=== PATIENT | female | born 1955 | race Caucasian/White ===

== ENCOUNTER 2019-06-07 19:56 | Inpatient (IN) | payer MEDICARE, MEDICAID ==
[~2019-06-07] VITALS: Ht 157.5 cm; Wt 52.9 kg
[2019-06-07] MEDS ORDERED: CARAFATE1 G PO (20:01)
[2019-06-07 20:24] LABS: BASOPHILS 0.3 % (0-2); EOSINOPHILS 0.2 % (0-7); HEMATOCRIT 38.2 % (36.0-48.0); HEMOGLOBIN 12.6 g/dL (12-16); IMMATURE GRANULOCYTES 0.2 % (0-5); LYMPHOCYTES 9.5 % (15-50); MCH 29.6 pg (26.0-34.0); MCV 89.7 fL (80.0-100.0); MEAN PLATELET VOLUME 10.2 fL (7.4-10.4); MONOCYTES 7.7 % (2-11); NEUTROPHILS 82.1 % (40-80); PLATELET COUNT 216 10x3/uL (130-400); RBC 4.26 10x6/uL (4.00-5.40); RDW 13.4 % (11.5-14.5)
[2019-06-07 20:29] LABS: APTT 34.5 SECONDS (22.8-39.4); INR 1.09 (0.85-1.17)
[2019-06-07 20:33] LABS: CALC OSMOLALITY 290 mosm/kg (275-300); CALCIUM 8.2 mg/dL (8.5-10.1); CARBON DIOXIDE 26.5 mmol/L (21.0-32.0); CHLORIDE - SERUM 106 mmol/L (98-107); GLUCOSE 92 mg/dL (74-106); POTASSIUM - SERUM 3.3 mmol/L (3.5-5.1); SODIUM 143 mmol/L (136-145); UREA NITROGEN 29 mg/dL (7-18); eGFR NON AFRICAN AMERICAN 59 mL/min (90-120)
--- NOTE | 2019-06-07 20:33 | NUR ---
RT AT PT BEDSIDE
[2019-06-07 20:43] LABS: ALBUMIN 3.1 g/dL (3.4-5.0); ALKALINE PHOSPHATASE 105 U/L (46-116); ALT (SGPT) 9 U/L (10-68); BILIRUBIN - TOTAL 0.25 mg/dL (0.2-1.3); CKMB 4.3 U/L (0.0-3.6); CREATINE KINASE 65 UL (21-215); PRO BNP 1074 pg/mL (0-125)
[2019-06-07 20:51] LABS: TROPONIN-I < 0.017 ng/mL (0.000-0.060)
[2019-06-07 21:00] VITALS: BP 133/72
[2019-06-07 21:10] LABS: APPEARANCE TURBID (CLEAR); BACTERIA MANY /hpf (NEGATIVE); BILIRUBIN NEGATIVE (NEGATIVE); COLOR YELLOW (YELLOW); GLUCOSE NEGATIVE (NEGATIVE); KETONE NEGATIVE (NEGATIVE); NITRITE NEGATIVE (NEGATIVE); PROTEIN 2+ mg/dL (NEGATIVE); RED CELLS - URINE 25-50 /hpf (0-5); SPECIFIC GRAVITY 1.015 (1.005-1.020); UROBILINOGEN NORMAL (NORMAL); WHITE CELLS - URINE 25-50 /hpf (NEGATIVE)
--- NOTE | 2019-06-07 21:45 | NUR ---
PT RESTING ON BED. PT FAMILY AT BEDSIDE.
[2019-06-07 22:00] VITALS: BP 124/53
--- NOTE | 2019-06-07 22:10 | NUR ---
PT PROVIDED SANDWICH BOX AND ICE WATER. PT SITTING UP IN BED. PT DAUGHTER AT BEDSIDE.
[2019-06-07] MEDS ORDERED: OMEPRAZOLE20 M1 PO (23:33)
[2019-06-07] MEDS ORDERED: PREDNISONE5 MG PO (23:34)
[2019-06-07] MEDS ORDERED: REMERON15 MG PO (23:35)
[2019-06-07] MEDS ORDERED: BAYER ASPIRIN325 MG PO (23:36)
[2019-06-07] MEDS ORDERED: FERROUS SULFAT325 MG PO (23:36)
[2019-06-07 23:52] VITALS: BP 130/60; BMI 19.7
--- NOTE | 2019-06-08 00:02 | NUR ---
RECEIVED REPORT FROM RN IN ER. ARRIVED TO FLOOR ON STRETCHER. REQUIRE 2 STAFF TO TRANSFER TO BED. REQUESTED TO GO TO THE B/R. THIS NURSE ASSISTED TO B/R. WEAKNESS IN LOWER EXTREMITIES AND RIGHT WRIST HAS DEFORMITY. PT STATES SHE BROKE IT SOME YEARS AGO AND HAD SURGERY ON HER WRIST. AALERT AND ORIENTED X4. DTR AT BEDSIDE. EDUCATED PT AND FAMILY ON NEED TO STAY HYDRATED. VOICED UNDERSTANDING. ASSESSMENT COMPLETED.
[2019-06-08 04:00] VITALS: BP 129/62
--- NOTE | 2019-06-08 07:20 | NUR ---
PT AWAKE AND ORIENTED, SITTING IN CHIAR BESIDE BED. NO COMPLAINTS/CONCERNS STATED AT THIS TIME. DAUGHTER AT BEDSIDE. CL INR EACH,S RX2.
[2019-06-08 08:27] VITALS: BP 152/90
--- NOTE | 2019-06-08 09:55 | NUR ---
I have reviewed this patient and I concur with the Shift Assessment completed by the Licensed Practical Nurse today this shift.
[2019-06-08 13:00] VITALS: BP 154/65
[2019-06-08] MEDS ORDERED: ALBUTEROL SULF8.5 GM INH (13:04)
--- NOTE | 2019-06-08 16:12 | NUR ---
rehab prescreen: thank you for this eval. this patient has [employer] insurance and will require prior auth before able to admit. will monitor progress til hear back from insurance company. currently not participating with therapy, will need to access functionability before able to admit. once again thank you for this eval. miriam su lpn clinical liasion
[2019-06-08 16:58] VITALS: BP 139/62
--- NOTE | 2019-06-08 17:08 | NUR ---
PT AWAKE AND ORIENTED, SITTING IN BED EATING SUPPER. DAUGHTER AT BEDSIDE. WHEN I ENTERED ROOM PT WAS IN THE BATHROOM SITTING ON THE TOILET. WHILE PREPARING MEDICATION DAUGHTER INFORMED ME CAUSUALLY THAT THE PT HAD FALLEN WHILE GOING TO THE BATHROOM. HER AND THE PT INFORMED ME SHE HAD GOTTEN SHAKY AND SIMPLY SAT DOWN IN THE FLOOR WITH HER DAUGHTERS ASSITANCE. SHE HIT NOTHING ON THE WAY DOWN AND IS IN NO PAIN. CURRENTLY DOING FINE. DOCTOR NOTIFIED. CL IN REACH, SRX2.
--- NOTE | 2019-06-08 19:21 | NUR ---
RECEIVED UP IN BED WITH EYES OPEN AND DTR AT BEDSIDE. ALERT AND ORIENTED X4. UP WITH ASSIST. BOTH HANDS HAVE SKELETAL DEFORMATIES. PT STATES SHE HAS RUMATOID ARTHRITIS. USES BEDSIDE COMMODE. YELLOW GOWN ON AND WEARING YELLOW BRACLET. DUE TO FALL YESTERDAY PRIOR TO COMMING TO ER. IV TO RIGHT WRIST SL.. DENIES ANY NEEDS AT THIS TIME.
[2019-06-08 20:00] VITALS: BP 130/63
[2019-06-08 23:04] LABS: UDS - AMPHET NEGATIVE QUAL (NEGATIVE); UDS - BARB NEGATIVE QUAL (NEGATIVE); UDS - BENZO NEGATIVE QUAL (NEGATIVE); UDS - COCAINE NEGATIVE QUAL (NEGATIVE); UDS - OPIATE NEGATIVE QUAL (NEGATIVE); UDS - PCP NEGATIVE QUAL (NEGATIVE); UDS - THC NEGATIVE QUAL (NEGATIVE)
[2019-06-08 23:49] VITALS: BP 144/62
[2019-06-09 04:39] VITALS: BP 147/82
[2019-06-09 08:43] VITALS: BP 137/74
--- NOTE | 2019-06-09 08:44 | NUR ---
REPORT RECIEVED. PT SITTING ON BEDSIDE. RR EVEN AND UNLABORED. SHE HAS A R WRIST PIV THAT IS SL. BED LOCKED AND IN LOWEST POSITION, CALL LIGHT WITHIN REACH. WILL CTM
[2019-06-09 12:29] VITALS: BP 133/68
[2019-06-09 14:10] LABS: ANION GAP 10.4 mmol/L (8-16); CALCIUM 7.8 mg/dL (8.5-10.1); CARBON DIOXIDE 28.3 mmol/L (21.0-32.0)
[2019-06-09 14:13] LABS: BASOPHILS 0.4 % (0-2); EOSINOPHILS 2.3 % (0-7); HEMATOCRIT 33.8 % (36.0-48.0); HEMOGLOBIN 10.9 g/dL (12-16); IMMATURE GRANULOCYTES 0.2 % (0-5); LYMPHOCYTES 16.9 % (15-50); MCH 29.4 pg (26.0-34.0); MCHC 32.2 g/dL (31.0-37.0); MCV 91.1 fL (80.0-100.0); MEAN PLATELET VOLUME 10.8 fL (7.4-10.4); MONOCYTES 8.5 % (2-11); NEUTROPHILS 71.7 % (40-80); PLATELET COUNT 170 10x3/uL (130-400); RBC 3.71 10x6/uL (4.00-5.40); RDW 13.6 % (11.5-14.5); WBC 5.2 10x3/uL (4.8-10.8)
[2019-06-09 14:19] LABS: POTASSIUM - SERUM 2.7 mmol/L (3.5-5.1)
[2019-06-09 14:57] VITALS: Ht 157.5 cm; Wt 52.9 kg
--- NOTE | 2019-06-09 15:55 | NUR ---
I have reviewed this patient and I concur with the Shift Assessment completed by the Licensed Practical Nurse today this shift.
[2019-06-09 17:35] VITALS: BP 151/81
--- NOTE | 2019-06-09 17:50 | MORECARE ---
CASE MANAGEMENT DISCHARGE SUMMARY PATIENT: ZOYA AVENDAÑO UNIT: [id number] ADM DATE: 06/07/19 AGE: 63 : 54 SEX: F ROOM/BED: D.3103 AUTHOR: KEREN,DOC PHYSICIAN: REFERRING PHYSICIAN: PAOLA LAM MD DATE OF SERVICE: 06/09/19 Discharge Plan Patient Name: ZOYA AVENDAÑO Facility: [facility]:[place] : 1955 Planned Disposition: Home with Home Health Anticipated Discharge Date: 06/10/19 Discharge Date: Expected LOS: 3 Initial Reviewer: [email or web address] Initial Review Date: 06/07/2019 Generated: 06/09/19 6:49 pm Comments DCP- Discharge Planning Updated by [email or web address]: Marco Antonio Fulton on 06/09/19 4:[address] Patient Name: ZOYA AVENDAÑO Admission Status: ER Accout number: [id number] Admission Date: 06-07-2019 : 1955 Admission Diagnosis: Attending: PAOLA LAM Current LOS: 2 Anticipated DC Date: 06-10-2019 Planned Disposition: Home with Home Health Primary Insurance: HU[employer]NA CHOICE [facility] PLANNED EXTERNAL PROVIDER: [facility] Discharge Planning Comments: CM RECEIVED ORDER FOR INPATIENT REHAB PRESCREENING. CM MET WITH PT IN ROOM TO DISCUSS DISCHARGE PLANNING AND NEEDS. PT REPORTS LIVING AT HOME INDEPENDENTLY WITH HER ADULT DAUGHTER. PT HAS BEDSIDE COMMODE, WALKER AND CANE THAT SHE NORMALLY USES TO WALK; PT HAS NO MEDICAL EQUIPMENT PROVIDER PREFERENCE AND NO OUTSIDE SERVICES ASSISTING IN THE HOME. CM DISCUSSED AVAILABILITY OF HOME HEALTH, REHAB SERVICES AND MEDICAL EQUIPMENT. PT DENIES NEED FOR REHAB PLACEMENT. PT WANTS TO GO HOME WITH HER DAUGHTER AND WILL ACCEPT HOME HEALTH, SHE THINKS THE COMPANY IS [facility]. PT SIGNED CHOICE FOR [facility] OR NO PREFERENCE HOME HEALTH PROVIDER. PT REPORTS HER DAUGHTER WILL PICK HER UP FOR DISCHARGE HOME; PT INSISTS THAT SHE IS UP OUT OF BED AND ABLE TO WALK WELL ENOUGH TO GO HOME SAFELY. IMPORTANT MESSAGE FROM MEDICARE PROVIDED AND EXPLAINED. PT DECLINES REHAB PLACEMENT, WANTS TO DISCHARGE HOME WITH ADULT DAUGTHER; WILL ACCEPT HOME HEALTH. CM TO ARRANGE HOME HEALTH WITH PHYSICIAN AGREEMENT AND ORDERS. PHYSICAL ADDRESS FOR DISCHARGE IS [address] [place] [address]. Hydraulic Chair Assembler: Marco Antonio Fulton DCPIA - Discharge Planning Initial Assessment Updated by [id number]: Marco Antonio Fulton on 06/09/19 5:44 pm * Is the patient Alert and Oriented? Yes * How many steps to enter\exit or inside your home? * PCP DR. FALLON * Pharmacy [facility] IN [place] * Preadmission Environment Home with Family * ADLs Independent * Equipment Bedside Commode Cane Walker * Other Equipment NO MEDICAL EQUIPMENT PROVIDER PREFERENCE * List name and contact numbers for known caregivers / representatives who currently or will assist patient after discharge: AMADOR AVENDAÑO, DTR, * Verbal permission to speak to the caregivers and representatives has been obtained from the patient. N/A * Community resources currently utilized None * Please name any agencies selected above. NONE * Additional services required to return to the preadmission environment? Yes * Can the patient safely return to the preadmission environment? Yes * Has this patient been hospitalized within the prior 30 days at any hospital? No Coverage Notice Reviewer: [id number] Fulton Notice Issued Date-Time: 06/09/2019 14:40 Notice Type: IM Discharge Notice Notice Delivered To: Patient Relationship to Patient: Attorney Law Clerk Name: Delivery Method: HAND - Hand Delivered Chrissy Days: Prior Verbal Notification: Recipient Understood Notice: Yes Recipient Signature: Yes Med Rec Note Co-signed by Attending: Coverage Notice Comment: Reviewer: JNAES Fulton Notice Issued Date-Time: 06/09/2019 14:40 Notice Type: Patient Choice Letter Notice Delivered To: Patient Relationship to Patient: Attorney Law Clerk Name: Delivery Method: HAND - Hand Delivered Chrissy Days: Prior Verbal Notification: Recipient Understood Notice: Yes Recipient Signature: Yes Med Rec Note Co-signed by Attending: Coverage Notice Comment: [facility] OR [facility] PROVIDER PREFERENCE Patient Name: ZOYA AVENDAÑO Page [phone] at 1750 All edits/amendments must be made on the electronic document DICTATION DATE: 06/09/191748 MANAGER ETL: CLEMENTINA 06/09/191748 RPT#: [id number] NM DATE: STATUS: ADM IN [facility] [address] [place] [address] END OF REPORT
[2019-06-09 20:00] VITALS: BP 123/82
--- NOTE | 2019-06-09 20:03 | NUR ---
RECEIVED UP IN CHAIR WITH EYES OPEN AND TV ON. ALERT AND ORIENTED X4. IV TO RIGHT WRIST WITH POTASSIUM INFUSING @ 10CC/HR. FOLLOWING EP. DTR LAYUING IN BED. DENIES ANY NEEEDS AT THIS TIME.
[2019-06-10 04:00] VITALS: BP 154/62
[2019-06-10 06:15] LABS: BASOPHILS 0.4 % (0-2); EOSINOPHILS 2.1 % (0-7); HEMATOCRIT 31.5 % (36.0-48.0); HEMOGLOBIN 10.1 g/dL (12-16); IMMATURE GRANULOCYTES 0.4 % (0-5); LYMPHOCYTES 12.9 % (15-50); MCH 28.9 pg (26.0-34.0); MCHC 32.1 g/dL (31.0-37.0); MCV 90.3 fL (80.0-100.0); MEAN PLATELET VOLUME 10.7 fL (7.4-10.4); MONOCYTES 7.5 % (2-11); NEUTROPHILS 76.7 % (40-80); PLATELET COUNT 162 10x3/uL (130-400); RBC 3.49 10x6/uL (4.00-5.40); RDW 13.5 % (11.5-14.5); WBC 4.8 10x3/uL (4.8-10.8)
[2019-06-10 06:42] LABS: CALC OSMOLALITY 292 mosm/kg (275-300); CARBON DIOXIDE 27.1 mmol/L (21.0-32.0); CHLORIDE - SERUM 108 mmol/L (98-107); CREATININE - SERUM 0.7 mg/dL (0.6-1.3); GLUCOSE 107 mg/dL (74-106); POTASSIUM - SERUM 3.9 mmol/L (3.5-5.1); SODIUM 145 mmol/L (136-145); UREA NITROGEN 24 mg/dL (7-18); eGFR NON AFRICAN AMERICAN 89 mL/min (90-120)
--- NOTE | 2019-06-10 08:40 | NUR ---
BEDSIDE SHIFT REPORT COMPLETED. PATIENT WAS RESTING QUIETLY IN BED, DAUGHTER AT BEDSIDE. SHE DENIES ANY NEEDS AT THIS TIME.
[2019-06-10 10:01] VITALS: BP 160/84
--- NOTE | 2019-06-10 12:20 | NUR ---
OT NOTE: PT DOING WELL; IN ROOM AMBULATION WITH USE OF WALKER AND SPV; TOILET TRANSFERS AND TRANSFERS TO BED WITH SPV; ABLE TO AMB GREATER THAN 150 FT FOR STRENGTH/ENDURANCE ACT. JESSI LUNA, OTR/L [phone]
[2019-06-10 13:04] VITALS: BP 147/73
--- NOTE | 2019-06-10 14:48 | NUR ---
SMOKING CESSATION SHEET GIVEN TO PRIMARY NURSE TO GIVE TO PATIENT TO FILL OUT. [place] TOBACCO QUITLINE.
--- NOTE | 2019-06-10 15:42 | NUR ---
PATIENT TO FILL OUT TOBACCO QUITLINE EXCEPT FOR PHONE NUMBER. WHEN QUESTIONED OF PHONE NUMBER, SHE STATES THAT SHE DOES NOT HAVE ONE AND THAT SHE IS NOT REALLY INTERESTED IN QUITTING.
--- NOTE | 2019-06-10 16:15 | MORECARE ---
CASE MANAGEMENT DISCHARGE SUMMARY PATIENT: ZOYA AVENDAÑO UNIT: [id number] ADM DATE: 06/07/19 AGE: 63 : 54 SEX: F ROOM/BED: D.6482 AUTHOR: KEREN,DOC PHYSICIAN: REFERRING PHYSICIAN: PAOLA LAM MD DATE OF SERVICE: 06/10/19 Discharge Plan Patient Name: ZOYA AVENDAÑO Facility: [facility]:[place] : 1955 Planned Disposition: Home with Home Health Anticipated Discharge Date: 06/10/19 Discharge Date: Expected LOS: 3 Initial Reviewer: [email or web address] Initial Review Date: 06/07/2019 Generated: 06/10/19 5:14 pm Comments DCP- Discharge Planning Updated by [email or web address]: Marco Antonio Fulton on 06/09/19 4:[address] Patient Name: ZOYA AVENDAÑO Admission Status: ER Accout number: [id number] Admission Date: 06-07-2019 : 1955 Admission Diagnosis: Attending: PAOLA LAM Current LOS: 2 Anticipated DC Date: 06-10-2019 Planned Disposition: Home with Home Health Primary Insurance: HUMANA CHOICE [facility] PLANNED EXTERNAL PROVIDER: [facility] Discharge Planning Comments: CM RECEIVED ORDER FOR INPATIENT REHAB PRESCREENING. CM MET WITH PT IN ROOM TO DISCUSS DISCHARGE PLANNING AND NEEDS. PT REPORTS LIVING AT HOME INDEPENDENTLY WITH HER ADULT DAUGHTER. PT HAS BEDSIDE COMMODE, WALKER AND CANE THAT SHE NORMALLY USES TO WALK; PT HAS NO MEDICAL EQUIPMENT PROVIDER PREFERENCE AND NO OUTSIDE SERVICES ASSISTING IN THE HOME. CM DISCUSSED AVAILABILITY OF HOME HEALTH, REHAB SERVICES AND MEDICAL EQUIPMENT. PT DENIES NEED FOR REHAB PLACEMENT. PT WANTS TO GO HOME WITH HER DAUGHTER AND WILL ACCEPT HOME HEALTH, SHE THINKS THE COMPANY IS [facility]. PT SIGNED CHOICE FOR [facility] OR NO PREFERENCE HOME HEALTH PROVIDER. PT REPORTS HER DAUGHTER WILL PICK HER UP FOR DISCHARGE HOME; PT INSISTS THAT SHE IS UP OUT OF BED AND ABLE TO WALK WELL ENOUGH TO GO HOME SAFELY. IMPORTANT MESSAGE FROM MEDICARE PROVIDED AND EXPLAINED. PT DECLINES REHAB PLACEMENT, WANTS TO DISCHARGE HOME WITH ADULT DAUGTHER; WILL ACCEPT HOME HEALTH. CM TO ARRANGE HOME HEALTH WITH PHYSICIAN AGREEMENT AND ORDERS. PHYSICAL ADDRESS FOR DISCHARGE IS [address] [place] [address]. Leather Stitcher: Marco Antonio Fulton DCPIA - Discharge Planning Initial Assessment Updated by [email or web address]: Marco Antonio Fulton on 06/09/19 5:44 pm * Is the patient Alert and Oriented? Yes * How many steps to enter\exit or inside your home? * PCP DR. FALLON * Pharmacy [facility] IN [place] * Preadmission Environment Home with Family * ADLs Independent * Equipment Bedside Commode Cane Walker * Other Equipment NO MEDICAL EQUIPMENT PROVIDER PREFERENCE * List name and contact numbers for known caregivers / representatives who currently or will assist patient after discharge: AMADOR AVENDAÑO, DTR, * Verbal permission to speak to the caregivers and representatives has been obtained from the patient. N/A * Community resources currently utilized None * Please name any agencies selected above. NONE * Additional services required to return to the preadmission environment? Yes * Can the patient safely return to the preadmission environment? Yes * Has this patient been hospitalized within the prior 30 days at any hospital? No External Providers External Provider: [facility] Next Contact Date: 06/10/2019 Service Request Date: Service Type: Resolution: Reviewer: Comments: Coverage Notice Reviewer: [id number] Genaro Fulton Notice Issued Date-Time: 06/09/2019 14:40 Notice Type: IM Discharge Notice Notice Delivered To: Patient Relationship to Patient: Roller Shop Utility Worker Name: Delivery Method: HAND - Hand Delivered Chrissy Days: Prior Verbal Notification: Recipient Understood Notice: Yes Recipient Signature: Yes Med Rec Note Co-signed by Attending: Coverage Notice Comment: Reviewer: [id number] Genaro Fulton Notice Issued Date-Time: 06/09/2019 14:40 Notice Type: Patient Choice Letter Notice Delivered To: Patient Relationship to Patient: Roller Shop Utility Worker Name: Delivery Method: HAND - Hand Delivered Chrissy Days: Prior Verbal Notification: Recipient Understood Notice: Yes Recipient Signature: Yes Med Rec Note Co-signed by Attending: Coverage Notice Comment: [facility] OR [facility] PROVIDER PREFERENCE Last DP export: 06/09/19 4:50 p Patient Name: ZOYA AVENDAÑO Page [phone] at 1615 All edits/amendments must be made on the electronic document DICTATION DATE: 06/10/191613 BUTADIENE CONVERTOR OPERATOR: CLEMENTINA 06/10/191613 RPT#: [id number] DC DATE: STATUS: ADM IN [facility] [address] [place] [address] END OF REPORT
--- NOTE | 2019-06-10 16:22 | MORECARE ---
CASE MANAGEMENT DISCHARGE SUMMARY PATIENT: ZOYA AVENDAÑO UNIT: [id number] ADM DATE: 06/07/19 AGE: 63 : 54 SEX: F ROOM/BED: D.3750 AUTHOR: KEREN,DOC PHYSICIAN: REFERRING PHYSICIAN: PAOLA LAM MD DATE OF SERVICE: 06/10/19 Discharge Plan Patient Name: ZOYA AVENDAÑO Facility: [facility]:[place] : 1955 Planned Disposition: Home with Home Health Anticipated Discharge Date: 06/10/19 Discharge Date: Expected LOS: 3 Initial Reviewer: [id number] Initial Review Date: 06/07/2019 Generated: 06/10/19 5:22 pm Comments DCP- Discharge Planning Updated by [email or web address]: Marco Antonio Fulton on 06/09/19 4:[address] Patient Name: ZOYA AVENDAÑO Admission Status: ER Accout number: [id number] Admission Date: 06-07-2019 : 1955 Admission Diagnosis: Attending: PAOLA LAM Current LOS: 2 Anticipated DC Date: 06-10-2019 Planned Disposition: Home with Home Health Primary Insurance: HUMANA CHOICE [facility] PLANNED EXTERNAL PROVIDER: [facility] Discharge Planning Comments: CM RECEIVED ORDER FOR INPATIENT REHAB PRESCREENING. CM MET WITH PT IN ROOM TO DISCUSS DISCHARGE PLANNING AND NEEDS. PT REPORTS LIVING AT HOME INDEPENDENTLY WITH HER ADULT DAUGHTER. PT HAS BEDSIDE COMMODE, WALKER AND CANE THAT SHE NORMALLY USES TO WALK; PT HAS NO MEDICAL EQUIPMENT PROVIDER PREFERENCE AND NO OUTSIDE SERVICES ASSISTING IN THE HOME. CM DISCUSSED AVAILABILITY OF HOME HEALTH, REHAB SERVICES AND MEDICAL EQUIPMENT. PT DENIES NEED FOR REHAB PLACEMENT. PT WANTS TO GO HOME WITH HER DAUGHTER AND WILL ACCEPT HOME HEALTH, SHE THINKS THE COMPANY IS [facility]. PT SIGNED CHOICE FOR [facility] OR NO PREFERENCE HOME HEALTH PROVIDER. PT REPORTS HER DAUGHTER WILL PICK HER UP FOR DISCHARGE HOME; PT INSISTS THAT SHE IS UP OUT OF BED AND ABLE TO WALK WELL ENOUGH TO GO HOME SAFELY. IMPORTANT MESSAGE FROM MEDICARE PROVIDED AND EXPLAINED. PT DECLINES REHAB PLACEMENT, WANTS TO DISCHARGE HOME WITH ADULT DAUGTHER; WILL ACCEPT HOME HEALTH. CM TO ARRANGE HOME HEALTH WITH PHYSICIAN AGREEMENT AND ORDERS. PHYSICAL ADDRESS FOR DISCHARGE IS [address] [place] [address]. Lube Worker: Marco Antonio Fulton DCPIA - Discharge Planning Initial Assessment Updated by [id number]: Marco Antonio Fulton on 06/09/19 5:44 pm * Is the patient Alert and Oriented? Yes * How many steps to enter\exit or inside your home? * PCP DR. FALLON * Pharmacy [facility] IN [place] * Preadmission Environment Home with Family * ADLs Independent * Equipment Bedside Commode Cane Walker * Other Equipment NO MEDICAL EQUIPMENT PROVIDER PREFERENCE * List name and contact numbers for known caregivers / representatives who currently or will assist patient after discharge: AMADOR AVENDAÑO, DTR, * Verbal permission to speak to the caregivers and representatives has been obtained from the patient. N/A * Community resources currently utilized None * Please name any agencies selected above. NONE * Additional services required to return to the preadmission environment? Yes * Can the patient safely return to the preadmission environment? Yes * Has this patient been hospitalized within the prior 30 days at any hospital? No Coverage Notice Reviewer: [id number] Fulton Notice Issued Date-Time: 06/09/2019 14:40 Notice Type: IM Discharge Notice Notice Delivered To: Patient Relationship to Patient: Die Caster Name: Delivery Method: HAND - Hand Delivered Chrissy Days: Prior Verbal Notification: Recipient Understood Notice: Yes Recipient Signature: Yes Med Rec Note Co-signed by Attending: Coverage Notice Comment: Reviewer: JANES Fulton Notice Issued Date-Time: 06/09/2019 14:40 Notice Type: Patient Choice Letter Notice Delivered To: Patient Relationship to Patient: Die Caster Name: Delivery Method: HAND - Hand Delivered Chrissy Days: Prior Verbal Notification: Recipient Understood Notice: Yes Recipient Signature: Yes Med Rec Note Co-signed by Attending: Coverage Notice Comment: [facility] OR [facility] PROVIDER PREFERENCE Last DP export: 06/10/19 3:15 p Patient Name: ZOYA AVENDAÑO Page [phone] at 1622 All edits/amendments must be made on the electronic document DICTATION DATE: 06/10/191621 POUND KEEPER: CLEMENTINA 06/10/19 162 RPT#: [id number] DC DATE: STATUS: ADM IN [place] [id number] [place] [address] END OF REPORT
--- NOTE | 2019-06-10 16:32 | MORECARE ---
CASE MANAGEMENT DISCHARGE SUMMARY PATIENT: ZOYA AVENDAÑO UNIT: [id number] ADM DATE: 06/07/19 AGE: 63 : 53 SEX: F ROOM/BED: D.8537 AUTHOR: KEREN,DOC PHYSICIAN: REFERRING PHYSICIAN: PAOLA LAM MD DATE OF SERVICE: 06/10/19 Discharge Plan Patient Name: ZOYA AVENDAÑO Facility: [facility]:[place] : 1955 Planned Disposition: Home with Home Health Anticipated Discharge Date: 06/10/19 Discharge Date: Expected LOS: 3 Initial Reviewer: [id number] Initial Review Date: 06/07/2019 Generated: 06/10/19 5:32 pm Comments DCP- Discharge Planning Updated by [id number]: Marco Antonio Fulton on 06/10/19 3:[address] Patient Name: ZOYA AVENDAÑO Encounter No: [id number] : 1955 Primary Insurance: HUMANA CHOICE PPO [employer] Anticipated DC Date: 06-10-2019 Planned Disposition: Home with Home Health External Planned Provider: [facility] DCP follow-up note: CM MET WITH PT IN ROOM TO DISCUSS DISCHARGE NEEDS AND PLANNING. CM DISCUSSED AVAILABILITY OF HOME HEALTH, REHAB SERVICES AND MEDICAL EQUIPMENT. PT DENIES DISCHARGE NEEDS OTHER THAN HOME HEALTH, SHE REMEMBERS THE NAME OF HOME HEALTH, IT IS [facility], NOT [facility]. DAUGHTER TO TRANSPORT HOME AT DISCHARGE. CM RECEIVED HOME HEALTH ORDER, CALLED [facility], , SPOKE TO [facility] AND PROVIDED REFERRAL INFORMATION. [facility] TO PROCESS AND SCHEDULE FOR HOME HEALTH ADMISSION. CM FAXED REFERRAL FOR [facility] TO [phone]. HEEL BLACKER NURSE NOTIFIED. Marco Antonio Fulton, CASE MANAGEMENT DCP- Discharge Planning Updated by [id number]: Marco Antonio Fulton on 06/09/19 4:[address] Patient Name: ZOYA AVENDAÑO Admission Status: ER Accout number: [id number] Admission Date: 06-07-2019 : 1955 Admission Diagnosis: Attending: PAOLA LMA Current LOS: 2 Anticipated DC Date: 06-10-2019 Planned Disposition: Home with Home Health Primary Insurance: HUMANA CHOICE PPO [employer] PLANNED EXTERNAL PROVIDER: [facility] Discharge Planning Comments: CM RECEIVED ORDER FOR INPATIENT REHAB PRESCREENING. CM MET WITH PT IN ROOM TO DISCUSS DISCHARGE PLANNING AND NEEDS. PT REPORTS LIVING AT HOME INDEPENDENTLY WITH HER ADULT DAUGHTER. PT HAS BEDSIDE COMMODE, WALKER AND CANE THAT SHE NORMALLY USES TO WALK; PT HAS NO MEDICAL EQUIPMENT PROVIDER PREFERENCE AND NO OUTSIDE SERVICES ASSISTING IN THE HOME. CM DISCUSSED AVAILABILITY OF HOME HEALTH, REHAB SERVICES AND MEDICAL EQUIPMENT. PT DENIES NEED FOR REHAB PLACEMENT. PT WANTS TO GO HOME WITH HER DAUGHTER AND WILL ACCEPT HOME HEALTH, SHE THINKS THE COMPANY IS [facility]. PT SIGNED CHOICE FOR [facility] OR NO PREFERENCE HOME HEALTH PROVIDER. PT REPORTS HER DAUGHTER WILL PICK HER UP FOR DISCHARGE HOME; PT INSISTS THAT SHE IS UP OUT OF BED AND ABLE TO WALK WELL ENOUGH TO GO HOME SAFELY. IMPORTANT MESSAGE FROM MEDICARE PROVIDED AND EXPLAINED. PT DECLINES REHAB PLACEMENT, WANTS TO DISCHARGE HOME WITH ADULT DAUGTHER; WILL ACCEPT HOME HEALTH. CM TO ARRANGE HOME HEALTH WITH PHYSICIAN AGREEMENT AND ORDERS. PHYSICAL ADDRESS FOR DISCHARGE IS [address] [place] [address]. Stock House Worker: Marco Antonio Fulton [facility] - Discharge Planning Initial Assessment Updated by [email or web address]: Marco Antonio Fulton on 06/09/19 5:44 pm * Is the patient Alert and Oriented? Yes * How many steps to enter\exit or inside your home? * PCP DR. FALLON * Pharmacy [facility] IN [place] * Preadmission Environment Home with Family * ADLs Independent * Equipment Bedside Commode Cane Walker * Other Equipment NO MEDICAL EQUIPMENT PROVIDER PREFERENCE * List name and contact numbers for known caregivers / representatives who currently or will assist patient after discharge: AMADOR AVENDAÑO, DTR, * Verbal permission to speak to the caregivers and representatives has been obtained from the patient. N/A * Community resources currently utilized None * Please name any agencies selected above. NONE * Additional services required to return to the preadmission environment? Yes * Can the patient safely return to the preadmission environment? Yes * Has this patient been hospitalized within the prior 30 days at any hospital? No Coverage Notice Reviewer: [id number] Genaro Fulton Notice Issued Date-Time: 06/09/2019 14:40 Notice Type: IM Discharge Notice Notice Delivered To: Patient Relationship to Patient: Warehouse Sorter Name: Delivery Method: HAND - Hand Delivered Chrissy Days: Prior Verbal Notification: Recipient Understood Notice: Yes Recipient Signature: Yes Med Rec Note Co-signed by Attending: Coverage Notice Comment: Reviewer: [id number] - Marco Antonio Fulton Notice Issued Date-Time: 06/09/2019 14:40 Notice Type: Patient Choice Letter Notice Delivered To: Patient Relationship to Patient: Warehouse Sorter Name: Delivery Method: HAND - Hand Delivered Chrissy Days: Prior Verbal Notification: Recipient Understood Notice: Yes Recipient Signature: Yes Med Rec Note Co-signed by Attending: Coverage Notice Comment: [facility] OR [facility] PROVIDER PREFERENCE Last DP export: 06/10/19 3:22 p Patient Name: ZOYA AVENDAÑO Page [phone] at 1632 All edits/amendments must be made on the electronic document DICTATION DATE: 06/10/19 1632 RUBBING BED OPERATOR: CLEMENTINA 06/10/19 1632 RPT#: [id number] DC DATE: STATUS: ADM IN [facility] [address] [place] [address] END OF REPORT
--- NOTE | 2019-06-10 17:08 | NUR ---
PATIENT IS BEING DISCHARGED. ALL DISCHARGE TEACHING COMPLETE AND PAPERS SIGNED. IV REMOVED WITH CATHETER INTACT.
--- NOTE | 2019-06-10 18:12 | NUR ---
PATIENT HAS BEEN DISCHARGED. ALL DISCHARGE TEACHING HAS BEEN DONE AND PAPERS SIGNED. IV REMOVED WITH CATHETER INTACT. ALL PATIENT BELONGINGS HAVE GONE HOME WITH THE PATIENT.
== END 2019-06-10 18:13 | disposition home health service (06) | DRG 689 ==
LOC: D.ER 19:56 → D.M2 21:39
PROVIDERS: Family Medicine; ADMIT Internal Medicine Nephrology; ATTEND Internal Medicine Nephrology
DX: N39.0 Urinary tract infection, site not specified (principal); I50.31 Acute diastolic (congestive) heart failure; J44.1 Chronic obstructive pulmonary disease with (acute) exacerbation; N17.9 Acute kidney failure, unspecified; F17.213 Nicotine dependence, cigarettes, with withdrawal; I11.0 Hypertensive heart disease with heart failure; E86.0 Dehydration; E87.6 Hypokalemia; K21.9 Gastro-esophageal reflux disease without esophagitis; Z86.73 Personal history of transient ischemic attack (TIA), and cerebral infarction without residual deficits; Z91.81 History of falling

== ENCOUNTER 2020-09-07 16:12 | Emergency (ER) | payer MEDICARE, MEDICAID ==
[~2020-09-07] VITALS: Ht 157.5 cm; Wt 60.5 kg
[~2020-09-07 16:12] MED LIST: ALBUTEROL SULF8.5 GM INH; BAYER ASPIRIN325 MG PO; CARAFATE1 G PO; FERROUS SULFAT325 MG PO; OMEPRAZOLE20 M1 PO; PREDNISONE5 MG PO; REMERON15 MG PO
[2020-09-07 16:28] VITALS: Ht 157.5 cm; Wt 60.5 kg
[2020-09-07 16:51] LABS: BASOPHILS 1.1 % (0-2); EOSINOPHILS 3.4 % (0-7); HEMATOCRIT 38.7 % (36.0-48.0); HEMOGLOBIN 12.5 g/dL (12-16); IMMATURE GRANULOCYTES 0.2 % (0-5); LYMPHOCYTE ABS# 1.73 10x3/uL (1.18-3.74); LYMPHOCYTES 30.8 % (15-50); MCH 30.8 pg (26.0-34.0); MCHC 32.3 g/dL (31.0-37.0); MCV 95.3 fL (80.0-100.0); MEAN PLATELET VOLUME 10.6 fL (7.4-10.4); MONOCYTES 10.2 % (2-11); NEUTROPHIL ABS# 3.05 10x3/uL (1.56-6.13); NEUTROPHILS 54.3 % (40-80); RBC 4.06 10x6/uL (4.00-5.40); RDW 12.6 % (11.5-14.5); WBC 5.6 10x3/uL (4.8-10.8)
[2020-09-07 16:59] LABS: INR 1.08 (0.85-1.17)
[2020-09-07 17:00] LABS: APTT 36.4 SECONDS (22.8-39.4)
[2020-09-07 17:11] LABS: CALC OSMOLALITY 284 mosm/kg (275-300); CALCIUM 8.4 mg/dL (8.5-10.1); CARBON DIOXIDE 27.4 mmol/L (21.0-32.0); CHLORIDE - SERUM 105 mmol/L (98-107); GLUCOSE 84 mg/dL (74-106); POTASSIUM - SERUM 4.1 mmol/L (3.5-5.1); SODIUM 141 mmol/L (136-145); UREA NITROGEN 27 mg/dL (7-18); eGFR NON AFRICAN AMERICAN 59 mL/min (90-120)
[2020-09-07 17:18] LABS: PLATELET COUNT 238 10x3/uL (130-400)
[2020-09-07 17:30] LABS: ALBUMIN 3.4 g/dL (3.4-5.0); ALKALINE PHOSPHATASE 86 U/L (30-120); ALT (SGPT) 13 U/L (10-68); BILIRUBIN - TOTAL 0.28 mg/dL (0.2-1.3); CKMB 4.6 U/L (0.0-3.6); CREATINE KINASE 131 UL (21-215); MAGNESIUM - SERUM 2.1 mg/dL (1.8-2.4); PROTEIN - SERUM 7.2 g/dL (6.4-8.2); TROPONIN-I < 0.017 ng/mL (0.000-0.060)
[2020-09-07 20:46] VITALS: BP 160/61
== END 2020-09-07 20:46 | disposition home or self-care (01) ==
LOC: D.ER 16:12
PROVIDERS: Family Medicine
DX: R07.9 Chest pain, unspecified (principal); I25.10 Atherosclerotic heart disease of native coronary artery without angina pectoris; I50.9 Heart failure, unspecified; J44.9 Chronic obstructive pulmonary disease, unspecified; Z72.0 Tobacco use

== ENCOUNTER → 2020-10-08 08:00 | Outpatient (CLI) | payer MEDICARE, MEDICAID ==
[2020-09-07 16:28] VITALS: BMI 24.4
== END | disposition home or self-care (01) ==
LOC: D.HCCECHO 08:00
PROVIDERS: ATTEND Internal Medicine Interventional Cardiology
DX: I20.9 Angina pectoris, unspecified (principal)